=== PATIENT | male | born 1950 | race Caucasian/White ===

== ENCOUNTER 2024-08-26 06:46 | Day surgery (SDC) | payer MEDICARE, MEDICAID ==
[2024-08-25 15:11] LABS: BASOPHILS # (AUTO) 0.1 X10'3 (0-0.2); BASOPHILS % (AUTO) 0.8 % (0-1); EOSINOPHILS # (AUTO) 0.3 X10'3 (0-0.9); HEMATOCRIT 45.6 % (42.0-52.0); HEMOGLOBIN 15.3 g/dl (14.0-17.9); LYMPHOCYTES # (AUTO) 0.9 X10'3 (1.1-4.8); LYMPHOCYTES % (AUTO) 10.4 % (21-51); MEAN CORPUSCULAR HEMOGLOBIN 33.3 PG (27.0-31.0); MEAN CORPUSCULAR HGB CONC 33.6 g/dL (33.0-36.5); MEAN CORPUSCULAR VOLUME 99.2 FL (78-98); MEAN PLATELET VOLUME 8.7 FL (7.4-10.4); MONOCYTES # (AUTO) 0.9 X10'3 (0-0.9); MONOCYTES % (AUTO) 10.8 % (2-12); NEUTROPHILS # (AUTO) 6.1 X10'3 (1.8-7.7); PLATELET COUNT 200 X10'3 (140-440); RED CELL DISTRIBUTION WIDTH 13.4 % (11.5-14.5); WHITE BLOOD COUNT 8.2 X10'3 (4.5-11.0)
[2024-08-25 15:20] LABS: ALBUMIN 3.1 G/DL (3.4-5.0); ANION GAP 9 (8-16); BLOOD UREA NITROGEN 14 MG/DL (7-18); BUN/CREATININE RATIO 9.7 (10.0-20.0); CALCIUM 8.3 MG/DL (8.5-10.1); CHLORIDE 105 MMOL/L (99-107); CREATININE 1.45 MG/DL (0.60-1.10); GLUCOSE 93 MG/DL (70-104); POTASSIUM 3.7 MMOL/L (3.5-5.1); SODIUM 139 MMOL/L (135-145); TOTAL CARBON DIOXIDE 25.2 MMOL/L (24-32); eGFR 48 ML/MIN
[2024-08-25 15:22] LABS: INR 1.2 INR; PROTHROMBIN TIME 12.4 SECONDS (9.0-12.0)
[~2024-08-26] VITALS: Ht 162.6 cm; Wt 86.0 kg
[2024-08-26] MEDS ORDERED: LORazepam 0.5 MG tablet PO ONE (07:05)
[2024-08-26] MEDS ORDERED: diphenhydrAMINE 25mg capsule PO ONE (07:05)
[2024-08-26] MEDS ORDERED: amiodarone 150mg/dext, iso-os 100 ML IV ONE (07:05)
[2024-08-26] MEDS ORDERED: normal saline 1000ml 1,000 ML IV SCH (07:05)
[2024-08-26] MEDS ORDERED: atropine 0.1mg/ml 10ml syringe IV ONE (07:05)
[2024-08-26] MEDS ORDERED: morphine 10mg/ml inj. IV ONE (07:05)
[2024-08-26] MEDS ORDERED: MIDAZolam 1mg/ml 10ml vial IV ONE (07:05)
[2024-08-26] MEDS ORDERED: APIX5TAB3 PO (07:20)
[2024-08-26] MEDS ORDERED: METO-384 PO (07:20)
[2024-08-26] MEDS ORDERED: ASPI81TA52 PO (07:20)
[2024-08-26] MEDS ORDERED: DIPH25TA62 PO (07:20)
[2024-08-26] MEDS ORDERED: ACET-75 PO (07:20)
[2024-08-26] MEDS ORDERED: AMI200T PO (07:20)
[2024-08-26] MEDS ORDERED: ROSU20TA73 PO (07:20)
== END 2024-08-26 09:30 | disposition home or self-care (01) ==
LOC: SSTAY O 06:46
PROVIDERS: ATTEND Internal Medicine Cardiovascular Disease
DX: I48.0 Paroxysmal atrial fibrillation (principal); Z53.8 Procedure and treatment not carried out for other reasons; I10 Essential (primary) hypertension; I25.10 Atherosclerotic heart disease of native coronary artery without angina pectoris; E78.5 Hyperlipidemia, unspecified; J44.9 Chronic obstructive pulmonary disease, unspecified; I73.9 Peripheral vascular disease, unspecified; Z87.891 Personal history of nicotine dependence; Z79.01 Long term (current) use of anticoagulants; Z79.899 Other long term (current) drug therapy; Z95.0 Presence of cardiac pacemaker; Z98.52 Vasectomy status; Z98.890 Other specified postprocedural states; Z88.5 Allergy status to narcotic agent; Z81.8 Family history of other mental and behavioral disorders; Z82.61 Family history of arthritis; Z82.3 Family history of stroke
CPT/HCPCS: 36415; 80048; 85025; 85610; 93005; Z7610; J7030